=== PATIENT | female | born 1990 | race Caucasian/White ===

== ENCOUNTER 2025-05-10 22:06 | Inpatient (IN) | payer OTHER, SELFPAY ==
--- OUTSIDE RECORDS SUMMARY | 2021-04-10 02:38 | XMS_ITS | Continuity of Care Document ---
Author Organization [facility] Address [address] [place] [address] Phone Care Team Providers Care Predator Control Trapper Name Role Phone Bear ELAINE WELLINGTONReva Wong Unavailable Unavaila ble Allergies, Adverse Reactions, Alerts Substance Reaction Status Criticality Penicillins Rash Active No Information morphine Rash Active No Information CEPHALEXIN MONOHYDRATE Rash Active No In formation trimethoprim Rash Active No Information sulfamethoxazole Rash Active No Informat ion Medications Medication Instructions Dosage Effective Dates (start - stop) Status Comments 07/11 (28) 1 mg-20 mcg (21)/75 mg (7) tablet take 1 tablet by oral route every day 1.00 tablet - Active Lamictal 25 mg tablet take 1 Tablet by oral route 2 times every day 25 MG - Active Rapamune 1 mg Tab take 2 tablet (2MG) by oral route every day 4 hours after cyclosporine. - Active Adderall 30 mg Tab take 1 tablet (30MG) by oral route every day before breakfast 30 MG - Active Procedures Procedure Date PREV VISIT, EST, AGE 18-39 PREV VISIT, EST, AGE 18-39 PREV VISIT, EST, AGE 12-17 PREV VISIT, EST, AGE 18-39 OD SPECIMEN HANDLING (GC/CHLAMYDIA) Dec Thin Prep(R) Imaging System Pap W/Reflex To HR HPV DNA No Charge PREV VISIT, EST, AGE 18-39 OD SPECIMEN HANDLING (GC/CHLAMYDIA) May THIN PREP TIS LIQUID-BASED Medroxyprogesterone Acetate 104 mg injec tion OFFICE/OUTPATIENT VISIT, EST Medroxyprogesterone Acetate 104 mg injec tion URINE TEST OFFICE/OUTPATIENT VISIT, EST ROUTINE VENIPUNCTURE ODH SPECIMEN HANDLING (GC/CHLAMYDIA) Jan HIV-1 OFFICE/OUTPATIENT VISIT, EST URINE TEST SMEAR, WET MOUNT, SALINE/INK SPECIMEN HANDLING OFFICE/OUTPATIENT VISIT, EST URINE TEST Condoms REMOVE INTRAUTERINE DEVICE [facility] MEDICAID URINE TEST INSERT INTRAUTERINE DEVICE Levonorgestrel iu contracept URINE TEST OFFICE/OUTPATIENT VISIT, EST URINE TEST PREV VISIT, EST, AGE 12-17 OFFICE/OUTPATIENT VISIT, EST URINALYSIS, NONAUTO W/SCOPE URINE TEST [facility] MEDICAID SPECIMEN HANDLING URINE TEST OFFICE/OUTPATIENT VISIT, NEW HIV-1 URINALYSIS, NONAUTO W/SCOPE URINE TEST SMEAR, WET MOUNT, SALINE/INK ROUTINE VENIPUNCTURE RPR, RFX On RPR Advance Directives Directive Yes / No Effective Date File Name No Information Encounters Encounter Description Practice Location Reason(s) For Visit Diagnoses Date Provider Providers Copied on Encounter [facility], [address] [place], [place], [id number], [place] tel:[phone] [facility] No Information 0 1 Bear ELAINE Ardon. [address], [place], [id number], [place]. tel:[phone] [facility], [address], [place], [id number], [place] tel:[phone] [facility] No Information 1 Bear [facility] Reva. [address], [place], [id number], [place]. tel:[phone] PREV VISIT, EST, AGE 18-39 [facility], [address], [place], [id number], [place] tel:[phone] [facility] annual exam (chief complaint) Encounter for gynecological examination (general) (routine) without abnormal findings- STD screeningOther problems related to lifestyle 1 [facility] Reva. [address], [place], [id number], [place]. tel:[phone] PREV VISIT, EST, AGE 18-39 [facility], [address], [place], [id number], [place] tel:[phone] [facility] annual visit (chief complaint) Gynecological Examination 4 [facility] Reva. [address], [place], [id number], [place]. tel:[phone] PREV VISIT, EST, AGE 12-17 [facility], [address], [place], [id number], [place] tel:[phone] [facility] annual visit (chief complaint) Gynecological Examination 3 Guy Christianson. [address], [place], [id number], [place]. tel:[phone] [facility], [address], [place], [id number], [place] tel:[phone] [facility] No Information 2 Kayy Soto. [address], [place], [id number], [place]. tel:[phone] PREV VISIT, EST, AGE 18-39 [facility], [address], [place], [id number], [place] tel:[phone] [facility] No Information 1 Guy Christianson. [address], [place], [id number], [place]. tel:[phone] OFFICE/OUTPAT IENT VISIT, [facility], [address], [place], [address], [place] tel:[phone] [facility] No Information 1 Angel Fu. [address], [place], [id number]. tel:[phone] OFFICE/OUTPAT IENT VISIT, [facility], [address], [place], [address], [place] tel:[phone] [facility] STI female (chief complaint) Screening examination for venereal disease 1 Kayy Soto. [address], [place], [id number], [place]. tel:[phone] OFFICE/OUTPAT IENT VISIT, [facility], [address], [place], [address], [place] tel:[phone] [facility] No Information 1 Guy Christianson. [address], [place], [id number], [place]. tel:[phone] OFFICE/OUTPAT IENT VISIT, [facility], [address], [place], [id number], [place] tel:[phone] [facility] No Information 1 Lamar Lam. [address], [place], [id number], [place]. tel:[phone] [facility], [address], [place], [address], [place] tel:[phone] [facility] No Information 1 Angel Fu. [address], [place], [id number]. tel:[phone] [facility], [address], [place], [address], [place] tel:[phone] [facility] No Information 9-201 0 Lamp Meghan. [address], [place], [address], [place]. tel:[phone] [facility], [address], [place], [address], [place] tel:[phone] [facility] No Information 5-201 0 Visci DO Robin. [address], [place], [address], [place]. tel:[phone] OFFICE/OUTPAT IENT VISIT, [facility], [address], [place], [id number], [place] tel:[phone] [facility] No Information 4-201 0 Visci DO Robin. [address], [place], [address], [place]. tel:[phone] PREV VISIT, [facility], AGE 12-17 [facility], [address], [place], [id number], [place] tel:[phone] [facility] No Information 0-201 0 Stiernisreen SHIP SURVEYOR-C Solange. [address] [place], [address], [place]. tel:[phone] OFFICE/OUTPAT IENT VISIT, [facility], [address] [place], [place], [id number], [place] tel:[phone] [facility] No Information 2-201 0 Guy Christianson. [address], [place], [address], [place]. tel:[phone] [facility], [address], [place], [address], [place] tel:[phone] [facility] No Information 3-200 9 Angel Fu. [address], [place], [address]. tel:[phone] OFFICE/OUTPAT IENT VISIT, [facility], [address], [place], [id number], [place] tel:[phone] [facility] No Information Apr-0 6-200 9 Kayy Soto. [address], [place], [id number], [place]. tel:[phone] Family History Family Member Type Diagnosis Age At Onset Mother Problem (finding) Alive and well Father Problem Allergies Mother Problem Mental illness Paternal grandfather Problem (finding) heart disease Mother Problem Irritable bowel syndrome Mother Problem hypertension Mother Problem malignant neopla sm of breast in first degree relative Problem (finding) Family history of hyper tension Father Problem hypertension Father Problem (finding) Alive and well Mother Problem Allergies Mother Problem depression Problem (finding) Family history of Diabetes mellitus Payers Payer name Insurance type Covered democrat ID Authoriza tijavon(s) Medicaid [facility] [id number] Social History Type Description Quantity Date Captured Comments Sex Female Smoking Status No Information Sexual Orientation Straight or heterosexual Gender Identity Female Chief Complaint And Reason For Visit No Information Reason For Referral Reason For Referral No Information Plan Of Treatment Date Type Action Status Goal Influenza vaccine. Due on due Goal RLP. Due on due Goal Tdap. Due on due Goal PAP. Due on due Goal H&P. Due on due Goal Depression screening. Due on due Goal SALES AND MARKETING ENGINEER exam. Due on due Goal Depression screening. Due on due Goal RLP. Due on due Goal SALES AND MARKETING ENGINEER exam. Due on due Goal Tdap. Due on due Goal Influenza vaccine. Due on due Goal PAP. Due on due Goal H&P. Due on due Goal Tobacco cessation counseling completed Goal TD Vaccine. Due on 14 due Goal SALES AND MARKETING ENGINEER exam. Due on due Goal PAP. Due on due Goal H&P. Due on due Goal Tobacco cessation counseling completed History Of Present Illness Encounter Date Complaint History Of Prese nt Illness annual exam Currently pregna nt: no. The patient states she uses none for control. Last LMP was 11/14/2020. Her menses is irregular with a frequency of >28 days. The patient does use tobacco. Tobacco cessation has been discussed. She does not drink alcohol. Additional information: Patient is here for annual exam. and desires to restart OCPs. states she has been on a progesterone only pill in the past. 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 Patient is very hyper and probably has ADHD. States she feels as if she has an ovarian cyst due to discomfort in the lower left abdominal area. . Functional Status Date Functional Assessmen t No Information Instructions Date Instruction Additional Infor tony Encouraged monthly B SE. Recommend calcium 1000mg QD. Encouraged good dietary intake and exercise. Laboratory specimens sent to lab. Patient to call in 2 weeks if desires results.Discussed control options and patient desires OCPs. Patient to obtain a letter from her Liver Transplant physician giving permission to restart progesterone only BC. Encouraged to use condoms to prevent and STDs. Patient states understanding and is willing to request letter.Patient is frustrated I would not Rx OCP. Informed patient I consulted Dr. Newton and he said I could not prescribe Progesterone only pill unless we receive permission from Liver transplant provider who is managing her care. Patient states understanding. Related to Encounter for gynecological examination (general) (routine) without abnormal findings Cervical cultures se nt to lab. Patient to call in 1 week for results Related to - STD screening Avoid sexual activit y while you await your test results. Related to Screening examination for venereal disease No treatment indicat ed today. Call for test results. Related to Screening examination for venereal disease Assessments Type Assessment Date No Information Patient Care Teams Name Effective Dates (start - stop) Status Members No Information
--- OUTSIDE RECORDS SUMMARY | 2021-04-10 02:38 | XMS_ITS | Continuity of Care Document ---
Author Organization [facility] Address [address] [place] [address] Phone Care Team Providers Care Inspector Firearms Name Role Phone Bear ELAINE WELLINGTONReva Wong [...] EST URINE TEST Condoms REMOVE INTRAUTERINE DEVICE [facility] MEDICAID URINE TEST INSERT INTRAUTERINE DEVICE Levonorgestrel iu contracept URINE TEST OFFICE/OUTPATIENT VISIT, EST URINE TEST PREV VISIT, EST, AGE 12-17 OFFICE/OUTPATIENT VISIT, EST URINALYSIS, NONAUTO W/SCOPE URINE TEST [facility] MEDICAID SPECIMEN HANDLING URINE TEST OFFICE/OUTPATIENT VISIT, NEW HIV-1 URINALYSIS, NONAUTO W/SCOPE URINE TEST SMEAR, WET MOUNT, SALINE/INK ROUTINE VENIPUNCTURE RPR, RFX On RPR Advance Directives Directive Yes / No Effective Date File Name No Information Encounters Encounter Description Practice Location Reason(s) For Visit Diagnoses Date Provider Providers Copied on Encounter [facility], [address] [place], [place], [id number], [place] tel:[phone] [facility] No Information 0 1 Bear ELAINE Ardon. [address], [place], [id number], [place]. tel:[phone] [facility], [address], [place], [id number], [place] tel:[phone] [facility] No Information 1 Bear [facility] Reva. [address], [place], [id number], [place]. tel:[phone] PREV VISIT, EST, AGE 18-39 [facility], [address], [place], [address], [place] tel:[phone] [facility] annual exam (chief complaint) Encounter for gynecological examination (general) (routine) without abnormal findings- STD screeningOther problems related to lifestyle 1 [facility] Reva. [address], [place], [id number], [place]. tel:[phone] PREV VISIT, EST, AGE 18-39 [facility], [address], [place], [id number], [place] tel:[phone] [facility] annual visit (chief complaint) Gynecological Examination 4 [facility] Reva. [address], [place], [id number], [place]. tel:[phone] PREV VISIT, EST, AGE 12-17 [facility], [address], [place], [id number], [place] tel:[phone] [facility] annual visit (chief complaint) Gynecological Examination 3 Guy Christianson. [address], [place], [id number], [place]. tel:[phone] [facility], [address], [place], [address], [place] tel:[phone] [facility] No Information 2 Kayy Soto. [address], [place], [address], [place]. tel:[phone] PREV VISIT, EST, AGE 18-39 [facility], [address], [place], [id number], [place] tel:[phone] [facility] No Information 1 Guy Christianson. [address], [place], [id number], [place]. tel:[phone] OFFICE/OUTPAT IENT VISIT, [facility], [address], [place], [id number], [place] tel:[phone] [facility] No Information 1 Angel Fu. [address], [place], [id number]. tel:[phone] OFFICE/OUTPAT IENT VISIT, [facility], [address], [place], [id number], [place] tel:[phone] [facility] STI female (chief complaint) Screening examination for venereal disease 1 Kayy Soto. [address], [place], [address], [place]. tel:[phone] OFFICE/OUTPAT IENT VISIT, [facility], [address], [place], [address], [place] tel:[phone] [facility] No Information 1 Guy Christianson. [address], [place], [address], [place]. tel:[phone] OFFICE/OUTPAT IENT VISIT, [facility], [address], [place], [address], [place] tel:[phone] [facility] No Information 1 Lamar Lam. [address], [place], [id number], [place]. tel:[phone] [facility], [address], [place], [id number], [place] tel:[phone] [facility] No Information 1 Angel Fu. [address], [place], [id number]. tel:[phone] [facility], [address], [place], [id number], [place] tel:[phone] [facility] No Information 9-201 0 Lamp Meghan. [address], [place], [id number], [place]. tel:[phone] [facility], [address], [place], [address], [place] tel:[phone] [facility] No Information 5-201 0 Visci DO Robin. [address], [place], [id number], [place]. tel:[phone] OFFICE/OUTPAT IENT VISIT, [facility], [address], [place], [id number], [place] tel:[phone] [facility] No Information 4-201 0 Visci DO Robin. [address], [place], [address], [place]. tel:[phone] PREV VISIT, [facility], AGE 12-17 [facility], [address], [place], [id number], [place] tel:[phone] [facility] No Information 0-201 0 Stiernisreen POLE LIFT OPERATOR-C Solange. [address] [place], [address], [place]. tel:[phone] OFFICE/OUTPAT IENT VISIT, [facility], [address], [place], [id number], [place] tel:[phone] [facility] No Information 2-201 0 Guy Christianson. [address], [place], [id number], [place]. tel:[phone] [facility], [address], [place], [id number], [place] tel:[phone] [facility] No Information 3-200 9 Angel Fu. [address], [place], [id number]. tel:[phone] OFFICE/OUTPAT IENT VISIT, [facility], [address], [place], [id number], [place] tel:[phone] [facility] No Information Apr-0 6-200 9 Kayy Soto. [address], [place], [id number], [place]. tel:[phone] Family History Family Member Type Diagnosis Age [...] mellitus Payers Payer name Insurance type Covered constitution party ID Authoriza tijavon(s) Medicaid [facility] [id number] Social History Type Description Quantity Date Captured [...] Goal Depression screening. Due on due Goal ART FRAMING MANAGER exam. Due on due Goal Depression screening. Due on due Goal RLP. Due on due Goal ART FRAMING MANAGER exam. Due on due Goal Tdap. Due on due Goal Influenza vaccine. Due on due Goal PAP. Due on due Goal H&P. Due on due Goal Tobacco cessation counseling completed Goal TD Vaccine. Due on 14 due Goal ART FRAMING MANAGER exam. Due on due Goal PAP. Due [...]
--- OUTSIDE RECORDS SUMMARY | 2022-01-30 09:07 | XMS_ITS | Continuity of Care Document ---
Author Organization [facility] Address [address] [place] [address] Phone Care Team Providers Care Distribution Agent Name Role Phone Lopez Baptiste DDS Unavailable Unavailable Procedures Procedure Date Admits Tobacco Use TOBACCO COUNSELING BITEWIN FILMS PANORAMIC FILM INTRAORAL:PERIAPICAL 1ST FILM INTROORAL:PERIAPICAL-EA ADD FILM 2021 INTROORAL:PERIAPICAL-EA ADD FILM 2021 COMPR ORAL EVAL:NEW/EST Caries risk assessment & documentation, high risk Treatment Initiated Advance Directives Directive Yes / No Effective Date File Name No Information Encounters Encounter Description Practice Location Reason(s) For Visit Diagnoses Date Provider Providers Copied on Encounter [facility], [address] [place] [address], [id number], tel:[phone] [facility] Main No Information Oliva Marroquin. [address] [place] [address], [id number] [address], [id number], [place]. tel:[phone] [facility], [address] [place] [address], [id number], [place] tel:[phone] [facility] Main Encounter for dental exam and cleaning w/o abnormal findings Oliva Marroquin. [address] [place] [address], [id number] [address] [place] [address], [id number], [place]. tel:[phone] Family History Family Member Type Diagnosis Age At Onset No Information Payers Payer name Insurance type Covered green party ID Gloria titus(tim) Kaye Perdomo [facility] [place] [id number] [facility] [id number] Social History Type Description Quantity Date Captured Comments Sex Female Smoking Status No Information Sexual Orientation Choose not to disclose Gender Identity Female Chief Complaint And Reason For Visit No Information Reason For Referral Reason For Referral No Information Plan Of Treatment Date Type Action Status Goal Influenza vaccine. Due on due Goal Depression screening. Due on due Goal Pap/HPV testing. Due on due Goal Tdap. Due on due Goal Td vaccine. Due on due History Of Present Illness Encounter Date Complaint History Of Prese nt Illness No Information Functional Status Date Functional Assessmen t No Information Instructions Date Instruction Additional Infor mation No Information Assessments Type Assessment Date No Information Patient Care Teams Name Effective Dates (start - stop) Status Members No Information
--- OUTSIDE RECORDS SUMMARY | 2022-01-30 09:07 | XMS_ITS | Continuity of Care Document ---
Author Organization [facility] Address [address] [place] [address] Phone Care Team Providers Care Watch Assembly Instructor Name Role Phone Lopez Baptiste DDS Unavailable [...] Diagnoses Date Provider Providers Copied on Encounter [facility], [address] [place] [address], [id number], tel:[phone] [facility] S Main No Information Oliva Marroquin. [address] [place] [address], [id number], [place], [id number], [place]. tel:[phone] [facility], [address] [place] [address], [id number], [place] tel:[phone] [facility] Main Encounter for dental exam and cleaning w/o abnormal findings Oliva Marroquin. [address] [place] [address], [id number] [address] [place] [address], [id number], [place]. tel:[phone] Family History Family Member Type Diagnosis Age At Onset No Information Payers Payer name Insurance type Covered democrat ID Gloria titus(riky Perdomo [facility] [place] [id number] [facility] [id number] Social History Type Description Quantity Date Captured Comments Sex Female Smoking Status No Information Sexual Orientation Choose not to disclose Gender Identity Female Chief Complaint And Reason For Visit No Information Reason For Referral Reason For Referral No Information Plan Of Treatment Date Type Action Status Goal Td vaccine. Due on due Goal Tdap. Due on due Goal Pap/HPV testing. Due on due Goal Depression screening. Due on due Goal Influenza vaccine. Due on due History Of Present Illness Encounter Date Complaint History Of Prese nt Illness No Information Functional Status Date Functional Assessmen t No Information Instructions Date Instruction Additional Infor mation No Information Assessments Type Assessment Date No Information Patient Care Teams Name Effective Dates (start - stop) Status Members No Information
--- OUTSIDE RECORDS SUMMARY | 2024-07-25 08:50 | XMS_ITS ---
Author Organization [facility] Address [address] [place] [address] Care Team Providers Care Shell Machine Operator Name Role Phone Aneesh Sotomayor Primary Care Provider REASON FOR VISIT NEW PT Exam - Swelling gums and fever Encounters Encounter Location Date Provider Diagnosis [address] [place] [address] 07/25/2024 Aneesh Sotomayor Plan Of Treatment Next Appt Details Provider Name:Ludy Gonzalez , 07/25/2025 09:10:00 AM, [address], [place], [address], Progress Notes * BRADLEY YANIDOB: 2 (34 yo F)Acc No.[id number]:07/25/2024 Patient:?YANI HUERTA .1Provider:?ROBY FreyOB:1990???Age:33 Y ???Sex:FemaleDate:07/25/2024Phone:[phone]:[address], [id number] Subjective: * Chief Complaints: * N EW PT Exam - Swelling gums and fever * Electronic signature of Aneesh Sotomayor DDS on 05/11/2025 at 12:42 AM ESTSign off status: Pending * Provider: Jose Sotomayor DDS Date: 0 07/25/2024 Generated for Printing/Faxing/eTransmitting on:?05/11/2025 12:42 AM EST
--- OUTSIDE RECORDS SUMMARY | 2024-12-12 08:00 | XMS_ITS ---
Author Organization [facility] Address [address] [place] [address] Care Team Providers Care Finisher Wallboard And Plasterboard Name Role Phone Aneesh Sotomayor Primary Care Provider Dian Nelson Unavailable [phone] REASON FOR VISIT FILLING Encounters Encounter Location Date Provider Diagnosis [facility] [address] [place] [address] 12/12/2024 Dian Degroot Plan Of Treatment Next Appt Details Provider Name:Ludy Gonzalez , 07/25/2025 09:10:00 AM, [address], [place], [address], Progress Notes * YANI HUERTADOB: 2 (34 yo F)Acc No.[id number]:12/12/2024 Patient:?YANI HUERTA .1Provider:?DIAN DEGROOT DDSDOB:1990???Age: 34 Y???Sex:FemaleDate:12/12/2024Phone:[phone]:[address] [place], [id number]:Aneesh Sotomayor Subjective: * Chief Complaints: * F ILLING * Electronic signature of Dian Degroot DDS on 05/11/2025 at 12:42 AM ESTSign off status: Pending * Provider: Lavell DEGROOT DDS Date: 0 12/12/2024 Generated for Printing/Faxing/eTransmitting on:?05/11/2025 12:42 AM EST
--- OUTSIDE RECORDS SUMMARY | 2025-02-09 09:15 | XMS_ITS ---
Author Organization [facility] Servic es Address [address] [place] [address] Care Team Providers Care Vegetable I Farmworker Name Role Phone Aneesh Sotomayor Primary Care Provider Holli Ramirez Unavailable [phone] REASON FOR VISIT PROPHY Encounters Encounter Location Date Provider Diagnosis [place] [address] [place] [address] 02/09/2025 Holli Ramirez Plan Of Treatment Next Appt Details Provider Name:Ludy Gonzalez , 07/25/2025 09:10:00 AM, [address], [place], [address], Progress Notes * BRADLEYGUANACOSERGEYDOB: 2 (34 yo F)Acc No.[id number]:02/09/2025 Patient:?BRADLEYGUANACONA .1Provider:?Holli RamírezDOB:1990???Age:34 Y???Sex: FemaleDate:02/09/2025Phone:[phone]:[address], [place]Vrs:Aneesh Sotomayor Subjective: * Chief Complaints: * P ROPHY * Electronic signature of Holli Ramirez on 05/11/2025 at 12:41 AM ESTSign off status: Pending * Provider: Pelon Ramírez Date: 0 02/09/2025 Generated for Printing/Faxing/eTransmitting on:?05/11/2025 12:41 AM EST
--- OUTSIDE RECORDS SUMMARY | 2025-03-20 05:15 | XMS_ITS ---
Author Organization [facility] Serv[facility] es Address [address] [place] [address] Care Team Providers Care Hot Patcher Name Role Phone Aneesh Sotomayor Primary Care Provider [phone] Mandy Bedolla Unavailable [phone] REASON FOR VISIT FILLING Encounters Encounter Location Date Provider Diagnosis [facility] [address] [place] [address] 03/20/2025 Mandy Bedolla Plan Of Treatment Next Appt Details Provider Name:Ludy Gonzalez , 07/25/2025 09:10:00 AM, [address], [place], [address], Progress Notes * BRADLEY YANIDOB: 2 (34 yo F)Acc No.[id number]:03/20/2025 Patient:?BRADLEYGUANACONA .1Provider:?Mandy BedollaDOB:1990???Age:34 Y???Sex: FemaleDate:03/20/2025Phone:[phone]:[address] [place], [place]Poz:Aneesh Sotomayor Subjective: * Chief Complaints: * F ILLING Billing Information: * Procedure Codes: * Electronic signature of Mandy Bedolla DMD on 05/11/2025 at 12:42 AM ESTSign off status: Pending * Provider: Sirena Bedolla Date: 0 03/20/2025 Generated for Printing/Faxing/eTransmitting on:?05/11/2025 12:42 AM EST
--- OUTSIDE RECORDS SUMMARY | 2025-04-10 11:15 | XMS_ITS ---
Author Organization [facility] Servic es Address [address] [place] [address] Care Team Providers Care Vice President Pharmacy Name Role Phone Aneesh Sotomayor Primary Care Provider Mandy Bedolla Unavailable [phone] REASON FOR VISIT FILLING Encounters Encounter Location Date Provider Diagnosis [facility] Services [address] [place] [address] 04/10/2025 Mandy Bedolla Plan Of Treatment Next Appt Details Provider Name:Ludy Gonzalez , 07/25/2025 09:10:00 AM, [address], [place], [address], Progress Notes * BRADLEYGUANACOSERGEYDOB: 2 (34 yo F)Acc No.[id number]:04/10/2025 Patient:?BRADLEYYANI RODRIGUEZ .1Provider:?Mandy BedollaDOB:1990???Age:34 Y???Sex: FemaleDate:04/10/2025Phone:[phone]:[address] [place], [place]Hkj:Aneesh Sotomayor Subjective: * Chief Complaints: * F ILLING * Electronic signature of Mandy Bedolla DMD on 05/11/2025 at 12:43 AM ESTSign off status: Pending * Provider: Sirena Bedolla Date: 1 Generated for Printing/Faxing/eTransmitting on:?05/11/2025 12:43 AM EST
[2025-05-10 23:17] VITALS: BP 110/90; PULSE 102; TEMP 37.3; O2SAT 99; BMI 26.5
--- NOTE | 2025-05-11 00:06 | XR_ITS ---
The [address] [address] Patient Name: YANI HUERTA MRN: [id number] date: 1990 Sex: F Assigned Patient Location: ER Current Patient Location: [place] Accession/Order Number: [id number] Exam Date: 05/11/2025 00:20 Report Date: 05/11/2025 09:29 At the request of: BLAYNE FUENTES MD Procedure: XR hand RT min 3V RIGHT HAND - 3 views CLINICAL DATA: Pain and swelling at the right hand and index finger following injury COMPARISON: None AP, lateral and oblique views were obtained. There is no evidence of fracture or dislocation. No bony destruction is noted. There is dorsal soft tissue swelling at the hands and also swelling at the proximal index finger. No subcutaneous air or radiopaque foreign bodies are noted. XR/XR hand RT min 3V IMPRESSION: NO ACUTE BONY INJURY. SOFT TISSUE SWELLING. Impression dictated by: Naima Katz M.D. 05/11/2025 9:29 AM Dictation Location: [place] [address] Electronically authenticated by: [id number] Y Date: 05/11/2025 09:29
[2025-05-11 00:38] LABS: Hematocrit 32.4 % (36.0-48.0); Hemoglobin 10.8 g/dL (12.0-16.0); Immature Granulocytes Abs Auto 0.12 10^3/uL (0.00-0.03); Immature Granulocytes Pct Auto 1.1 % (0.0-0.5); Lymphocytes Absolute Auto 0.6 10^3/uL (1.2-3.8); Mean Corpuscular HGB Conc 33.3 g/dL (29.9-35.2); Mean Corpuscular Hemoglobin 30.5 pg (26.7-34.0); Mean Corpuscular Volume 91.5 fL (81.0-99.0); Platelet Count 48 10^3/uL (150-450); Red Blood Count 3.54 10^6/uL (4.20-5.40); White Blood Count 11.2 10^3/uL (4.0-11.0)
--- OUTSIDE RECORDS SUMMARY | 2025-05-11 00:42 | XMS_ITS | Clinical Summary ---
Author Organization [facility] Address [address] [facility], [address] [place] [address] Care Team Providers Care Online Advertising Manager Name Role Phone Unavailable Primary Care Provider Unavailabl e Allergies Active AllergyReactionsCriticalityNoted DateComments Sulfamethoxazole-KnehzccqsqatFtaeisxleaoKorx17/14/2022ephalexinAnaphylaxisHigh 2Clindamycin/XosrzxlvolEefffbyjoepZqff71/14/2022MorphineAnaphylaxis, WjqxeuxrqhplcfBuom94/14/6722IvnngbyzwerBxbjtgwxjzqFssk55/14/2022ulfa BsggpalbtfkLbesddcxircPtwv51/14/2022 Medications MedicationSigDispense QuantityRefillsLast FilledStart DateEnd DateStatus sirolimus (RAPAMUNE) 1 MG tablet Take 2 mg by mouth dailyActive ursodiol (ACTIGALL) 300 MG capsule Take 300 mg by mouth 2 times daily (before meals)Active furosemide (LASIX) 20 MG tablet Take 20 mg by mouth dailyActive methylPREDNISolone (MEDROL, EUSEBIA,) 4 MG tablet Take by mouth. 1 kit 01/02/2022ctive Social History Tobacco UseTypesPacks/DayYears UsedDateSmoking Tobacco: Every DayCigarettes Smokeless Tobacco: NeverAlcohol UseStandard Drinks/WeekCommentsNever0 (1 standard drink = 0.6 oz pure alcohol)CommentsNoSex and Gender InformationValueDate RecordedSex Assigned at BirthNot on fileLegal SexFemale 01/02/2022 10:04 AM EDTGender IdentityNot on fileSexual OrientationNot on file Last Filed Vital Signs Vital SignReadingTime TakenCommentsBlood Ydidrdtf751/8901/02/2022 10:08 AM EDT Aoytp388201/02/2022 10:08 AM XGXXenskctwakg69.6 ??C (97.9 ??F)01/02/2022 10:08 AM EDTRespiratory Rbpo092901/02/2022 10:08 AM EDTOxygen Xmwqiyjglk95%01/02/2022 10:08 AM EDTInhaled Oxygen Concentration--Wgkwtp97.2 kg (135 lb)01/02/2022 10:08 AM LOAHlmdkd810 cm (5' 3 )01/02/2022 10:08 AM EDTBody Mass Index23.9101/02/2022 10:08 AM EDT Plan of Treatment Not on file Insurance * Guarantor: Kacie JaimesAccount TypeRelation to PatientDate of BirthPhone Billing AddressPersonal/TkovauCiqd33/27/[address] [address]
--- OUTSIDE RECORDS SUMMARY | 2025-05-11 00:42 | XMS_ITS | Patient Health Record ---
Author Organization [facility] es Address [address] [place] [address] Care Team Providers Care Nursery Supervisor Name Role Phone Aneesh Sotomayor Primary Care Provider Shaneka Nelson Unavailable [phone] Holli Ramirez Unavailable [phone] Mandy Bedolla Unavailable [phone] Reason For Referral No Information Encounters Encounter Location Date Provider Diagnosis [facility] [address] [place] [address] 08/02/2024 Shaneka Ballard Other dental procedure status Z98.818 ; Encounter for dental examination and cleaning with abnormal findings Z01.21 ; Cracked tooth K03.81 ; Retained dental root K08.3 and Dental caries on pit and fissure surface penetrating into dentin K02.52 [facility] [address] [place] [address] 11/23/2024 Shaneka Ballard Retained dental root K08.3 Assessments Encounter Date Diagnosis (ICD Code) Assessment Notes Treatment Notes Treatment Clinical Notes Section Notes 08/02/2024 Other dental procedure status (I CD-10 - Z98.818) 11/23/2024Retained dental root (ICD-10 - K08.3)08/02/2024Encounter for dental examination and cleaning with abnormal findings (ICD-10 - Z01.21)08/02/2024 Cracked tooth (ICD-10 - K03.81)08/02/2024Retained dental root (ICD-10 - K08.3) 08/02/2024Dental caries on pit and fissure surface penetrating into dentin (ICD- 10 - K02.52) Plan Of Treatment Next Appt Details Provider Name:Ludy Gonzalez , 07/25/2025 09:10:00 AM, [address], [place], [address], Insurance Providers Payer Name Payer Address Payer Phone Subscriber Number Group Number Insured Name Patient Relationship to Insured Coverage Start Date Coverage End Date Dental CareSonhung CARRASCO RI [address] [place] [phone] [id number] Tarah Huerta Child - Insured has Financial Responsibility 5 Dental Wrap [facility] [address] [place] [phone] [id number], AndraNatural Child - Insured has Financial Kniytrmobjgdvj95/09/2022
--- NOTE | 2025-05-11 00:43 | ED.UPPEXIN1 ---
HPI HPI - Extremity Injury (Upper) General Chief Complaint: Extremity Injury, Upper Stated Complaint: Abscess on right index finger Time Seen by Provider: 05/10/25 23:51 Source: patient Mode of arrival: walk-in Limitations: no limitations History of Present Illness HPI narrative: This 34-year-old female who is right-hand dominant presents for evaluation of redness, pain and swelling of her right index finger, long finger and ring finger as well as erythema and tenderness of the thenar eminence with lymphangitic streaking up the medial aspect of her right arm abutting her axilla. She states that she was putting a bed frame together yesterday and sustained a injury to the lateral aspect of the right index finger the PIP joint. She put a Band-Aid on it and went to work today. 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 After getting home she noticed that she had some redness and swelling of the hand which became increasingly more tender as the night went on and she developed fevers, chills and lymphangitic streaking up the medial aspect of her right arm. She does not know if she is ever had a tetanus vaccine and refuses one today. He also has a ring on her middle finger that she is unable to get off due to mild swelling. 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 She is on rejection medications. Related Data Home Medications ?Medication ?Instructions ?Recorded ?Confirmed dextroamphetamine-amphetamine 15 15 mg PO DAILY 05/11/25 05/11/25 mg tablet lamotrigine 100 mg tablet 100 mg PO DAILY 05/11/25 05/11/25 propranolol 60 mg capsule,24 60 mg PO Q24H 05/11/25 05/11/25 hr,extended release sirolimus 1 mg tablet 1 mg PO Q12H 05/11/25 05/11/25 sumatriptan succinate 100 mg tablet 100 mg PO Q2H 05/11/25 05/11/25 topiramate 200 mg tablet 200 mg PO DAILY 05/11/25 05/11/25 ursodiol 300 mg capsule 300 mg PO DAILY 05/11/25 05/11/25 Allergies Allergy/AdvReac Type Severity Reaction Status Date / Time cephalexin (From Keflex) Allergy Mild Swelling Verified 05/10/25 23:17 of Lip/Tongue/Throat clindamycin Allergy Mild Swelling Verified 05/10/25 23:17 of Lip/Tongue/Throat morphine Allergy Mild Hallucinati Verified 05/10/25 23:17 ng Penicillins Allergy Mild Swelling Verified 05/10/25 23:17 of Lip/Tongue/Throat Sulfa (Sulfonamide Allergy Mild Swelling Verified 05/10/25 23:17 Antibiotics) of Lip/Tongue/Throat sulfamethoxazole (From Allergy Mild Swelling Verified 05/10/25 23:17 Bactrim) of Lip/Tongue/Throat trimethoprim (From Bactrim) Allergy Mild Swelling Verified 05/10/25 23:17 of Lip/Tongue/Throat Opioid HPI Opioid Management Most Recent Pain and Opioid Data: Last Pain Scale 9 Today, 00:54 Review of Systems ROS Status of ROS 10 or more systems reviewed and unremarkable except as noted in history and below PFSH PFSH Social History Little interest or pleasure in doing things: not at all Feeling down, depressed, or hopeless: not at all Exam Narrative Exam Narrative: Vital signs and Nursing Notes reviewed: Patient is febrile, tachycardic, she has a normal blood pressure, she is not hypoxic with pulse ox of 99% on room air General: Awake, alert, oriented, nontoxic but uncomfortable appearing female, no acute distress, lying comfortably on the stretcher HEENT: Normocephalic atraumatic, mucous membranes are moist and pink, eyes are clear, normal conjunctiva, vision is grossly intact Chest: Lungs are clear to auscultation with good air entry, there is no wheezing rhonchi or rales appreciated no accessory muscle use, patient is speaking in complete sentences-no chest wall tenderness to palpation CVS: Regular rate and rhythm S1-S2, no murmurs rubs or gallops, pulses are brisk and equal bilaterally ABD: Soft, nondistended, nontender, no rebound guarding or rigidity, bowel sounds are normal, no pulsatile masses appreciated Extremities: There is an approximately 1 cm open wound to the lateral aspect of the right finger at the PIP joint and another superficial laceration between the MCP and PIP joint, the wound is draining purulent drainage. There is decreased range of motion and pain with passive and active flexion. Redness and tenderness extends outward from the index finger encompassing the medial aspect of the thumb and thenar eminence, the MCPs of the long finger and ring finger. There is a ring on the long finger that was removed with a ring cutter. There is lymphangitic streaking emanating from the right hand of the medial aspect of the wrist and forearm abutting the axilla. Skin: Normal in appearance with the exception of redness swelling, cellulitis of the right hand and lymphangitic streaking of the right upper extremity Neuro: No focal deficits Constitutional Vital Signs, click to edit/add: Last Vital Signs Temp 99.2 F 05/10/25 23:17 Pulse 102 H 05/10/25 23:17 Resp 18 05/10/25 23:17 BP 110/90 05/10/25 23:17 Pulse Ox 99 05/10/25 23:17 O2 Del Method Room Air 05/10/25 23:17 Course Vital Signs Vital signs: Vital Signs Temperature 99.2 F 05/10/25 23:17 Pulse Rate 102 H 05/10/25 23:17 Respiratory Rate 18 05/10/25 23:17 Blood Pressure 110/90 05/10/25 23:17 Pulse Oximetry 99 05/10/25 23:17 Oxygen Delivery Method Room Air 05/10/25 23:17 Temperature 99.2 F 05/10/25 23:17 Pulse Rate 102 H 05/10/25 23:17 Respiratory Rate 18 05/10/25 23:17 Blood Pressure 110/90 05/10/25 23:17 Pulse Oximetry 99 05/10/25 23:17 Oxygen Delivery Method Room Air 05/10/25 23:17 MDM - Extremity Injury (Upper) MDM Narrative Medical decision making narrative: This 34-year-old female who has had 2 liver transplants after being born with biliary atresia presents for evaluation of an infection in her right index finger. The patient states she was putting together a bed frame yesterday and cut the lateral aspect of her right finger. She did not think much of the injury and went to work yesterday after placing a Band-Aid over the site. After getting home from work she noticed redness and swelling to the extremity which extends to the right 3rd and 4th metacarpals. She did have a ring on her long finger that I removed. Has lymphangitic streaking up the medial aspect of her right arm almost to her axilla. She was noted to be febrile and mildly tachycardic upon arrival. An IV was placed and a septic workup was ordered. She is allergic to multiple antibiotics but not doxycycline. Medicated with IV fluids, Tylenol for her fever I have Percocet for her pain and IV doxycycline. Routine labs are reviewed. Her white count is mildly elevated 11.2 with a hemoglobin of 10.8. CRP is elevated. Lactic acid is elevated. Electrolytes are normal with an elevated creatinine at 2.13. Xray of the right hand does not show any bony erosion concerning for osteomyelitis, foreign body or gas in the tissues. There was purulent drainage from the right finger that was cultured. Blood cultures are pending at this time. On re-evaluation she has mild increase in flexion of the right index finger and marked improvement in flexion of the long finger and ring finger. The redness in her hand appears to be improving and the lymphangitic streaking is becoming less apparent. Case was discussed with the hospitalist and she is accepted for admission to [facility]. A bed is not available on the [facility] floor at this time and she will be given a bed 1 1 becomes available in the morning. Lab Data Labs: Lab Results 05/11/25 Range/Units 00:10 WBC 11.2 H (4.0-11.0) 10^3/uL RBC 3.54 L (4.20-5.40) 10^6/uL Hgb 10.8 L (12.0-16.0) g/dL Hct 32.4 L (36.0-48.0) % MCV 91.5 (81.0-99.0) fL MCH 30.5 (26.7-34.0) pg MCHC 33.3 (29.9-35.2) g/dL RDW 13.1 (11.0-15.0) % Plt Count 48 L (150-450) 10^3/uL MPV 12.5 (9.5-13.5) fL Neut % (Auto) 89.6 H (43.0-75.0) % Lymph % (Auto) 5.3 L (20.5-60.0) % [place] % (Auto) 3.9 (1.7-12.0) % Eos % (Auto) 0.0 L (0.9-7.0) % Baso % (Auto) 0.1 L (0.2-2.0) % Neut # (Auto) 10.0 H (1.4-6.5) 10^3/uL Lymph # (Auto) 0.6 L (1.2-3.8) 10^3/uL [place] # (Auto) 0.4 (0.3-0.8) 10^3/uL Eos # (Auto) 0.0 (0.0-0.7) 10^3/uL Baso # (Auto) 0.0 (0.0-0.1) 10^3/uL Abs Immat Gran (auto) 0.12 H (0.00-0.03) 10^3/uL Imm/Tot Granulo (auto) 1.1 H (0.0-0.5) % Sodium 142 (136-145) mmol/L Potassium 3.7 (3.5-5.1) mmol/L Chloride 112 H (98-107) mmol/L Carbon Dioxide 19.4 L (21.0-32.0) mmol/L Anion Gap 14.3 BUN 31.0 H (7.0-18.0) mg/dL Creatinine 2.13 H (0.55-1.02) mg/dL Est GFR ( Amer) 32 L (>=60 mL/min/1.73m^2) Est GFR (Non-Af Amer) 27 L (>=60 mL/min/1.73m^2) BUN/Creatinine Ratio 14.6 Glucose 208 H (74-106) mg/dL Lactate 2.3 H* (0.4-2.0) mmol/L Calcium 8.9 (8.5-10.1) mg/dL Total Bilirubin 0.6 (0.2-1.0) mg/dL AST 23 (15-37) U/L ALT 29 (14-59) U/L Alkaline Phosphatase 93 (46-116) U/L C-Reactive Protein 2.82 H (<=0.50) mg/dL Total Protein 7.0 (6.4-8.2) g/dL Albumin 3.5 (3.4-5.0) g/dL Globulin 3.5 g/dL Albumin/Globulin Ratio 1.0 Discharge Plan Discharge Chief Complaint: Extremity Injury, Upper Clinical Impression: Infection of finger, Lymphangitis Patient Disposition: Admitted As Inpatient Time of Disposition Decision: 02:24 Condition: Good
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
--- OUTSIDE RECORDS SUMMARY | 2025-05-11 00:43 | XMS_ITS | Clinical Summary ---
Author Organization [facility] Address [address] [place] [address] Care Team Providers Care Associate Professor Name Role Phone Huong Tejada MD Primary Care Provider [phone] Allergies Active AllergyReactionsCriticalityNoted DateComments Sulfamethoxazole-Vuubzlfabqzr29/05/8121Skfpgtfeyvj91/05/1478Mvvqtabcaw45/05/2025 Yahdjiiu31/05/4201Vpigzahbeyn37/05/7745Gaoysemudwgku30/05/2025 Medications MedicationSigDispense QuantityRefillsLast FilledStart DateEnd DateStatus lamoTRIgine (LaMICtal) 100 MG tablet Take 100 mg by mouth in the morning and 100 mg before bedtime.Active traZODone (Desyrel) 100 MG tablet Take 100 mg by mouth at bedtimeActive rOPINIRole (Requip) 0.5 MG tablet Take 0.5 mg by mouth in the morning and 0.5 mg in the evening and 0.5 mg before bedtime.Active busPIRone (Buspar) 10 MG tablet Take 10 mg by mouth in the morning and 10 mg before bedtime.Active topiramate (Topamax) 200 MG tablet Take 200 mg by mouth DailyActive baclofen (Lioresal) 10 MG tablet Take 10 mg by mouth in the morning and 10 mg before bedtime.Active SUMAtriptan (Imitrex) 100 MG tablet Take 100 mg by mouth 1 (one) time if needed for migraineActive amphetamine-dextroamphetamine XR (Adderall XR) 15 MG 24 hr capsule Take 15 mg by mouth in the morning. Do not crush or chew.Active sirolimus (Rapamune) 1 MG tablet Take 2 mg by mouth DailyActive ursodiol (Actigall) 300 MG capsule Take 300 mg by mouth in the morning and 300 mg in the evening.5Active norethindrone-ethinyl estradiol (Rohan Fe 07/11) 1-20 MG-MCG tablet Take 1 tablet by mouth DailyActive amitriptyline (Elavil) 25 MG tablet Indications:Chronic migraine with aura without status migrainosus, not intractableTake 1 tablet (25 mg) by mouth Daily 30 tablet 6Active Social History Tobacco UseTypesPacks/DayYears UsedDateSmoking Tobacco: Never Assessed CommentsUnknownSex and Gender InformationValueDate RecordedSex Assigned at Not on fileLegal NsxKwemmz46/15/2023 6:58 PM EDTGender IdentityNot on fileSexual OrientationNot on file Last Filed Vital Signs Vital SignReadingTime TakenCommentsBlood Ungherrb308/8610/24/2024 2:50 PM EDT Wkfhi775910/24/2024 2:50 PM EDTTemperature--Respiratory Sevn316310/24/2024 2:50 PM EDTOxygen Fexnoozvnp40%10/24/2024 2:50 PM EDTInhaled Oxygen Concentration-- Hzqwyh72.9 kg (163 lb)10/24/2024 2:50 PM WZFWzbuap267.5 cm (5' 2 )10/24/2024 2:50 PM EDTBody Mass Index29.8110/24/2024 2:50 PM EDT Plan of Treatment Health MaintenanceDue DateLast DoneCommentsHPV/Xhzaau2709/15/2021ervical Cancer Vdmeszmhs71/02/2022ap Smear, 05/23/2019, 03/13/2010COVID-19 Vaccine ( season)/Influenza Vaccine (#1)2025 Pneumococcal Vaccine: Pediatrics (0 to 5 Years) and At-Risk Patients (6 to 64 Years)Aged OutNo longer eligible based on patient's age to complete this topic Insurance Care Teams Team MemberRelationshipSpecialtyStart DateEnd Huong Tejada MD [address] [place] [address] PCP - GeneralFamily Medicine08/05/24
[2025-05-11 00:52] LABS: Alanine Aminotransferase 29 U/L (14-59); Albumin Globulin Ratio 1.0; Albumin Level 3.5 g/dL (3.4-5.0); Alkaline Phosphatase 93 U/L (46-116); Anion Gap 14.3; Aspartate Amino Transferase 23 U/L (15-37); Blood Urea Nitrogen 31.0 mg/dL (7.0-18.0); Calcium 8.9 mg/dL (8.5-10.1); Carbon Dioxide 19.4 mmol/L (21.0-32.0); Chloride 112 mmol/L (98-107); Estimated GFR (African America 32 (>=60 mL/min/1.73m^2); Estimated GFR (Non-African Ame 27 (>=60 mL/min/1.73m^2); Globulin 3.5 g/dL; Glucose 208 mg/dL (74-106); Potassium 3.7 mmol/L (3.5-5.1); Sodium 142 mmol/L (136-145); Total Protein 7.0 g/dL (6.4-8.2)
[2025-05-11 00:57] LABS: Lactate/Lactic Acid 2.3 mmol/L (0.4-2.0)
[2025-05-11] MEDS: DOXYCYCLINE HYCLATE 100 MG in 0.9 % SODIUM CHLORIDE 100 ML IV (01:03)
[2025-05-11] MEDS: 0.9 % SODIUM CHLORIDE 1,503 ML 501 ML IV (01:03)
[2025-05-11] MEDS: OXYCODONE HCL/ACETAMINOPHEN 5MG/325MG 1 TAB PO (01:04)
[2025-05-11] MEDS: KETOROLAC TROMETHAMINE 30 MG/ML VIAL IVP (01:04)
[2025-05-11 04:12] VITALS: BP 104/65; PULSE 91; TEMP 36.8; O2SAT 99
[2025-05-11 05:43] LABS: Lactate/Lactic Acid 1.0 mmol/L (0.4-2.0)
[2025-05-11 05:57] LABS: Hematocrit 28.9 % (36.0-48.0); Hemoglobin 9.5 g/dL (12.0-16.0); Mean Corpuscular HGB Conc 32.9 g/dL (29.9-35.2); Mean Corpuscular Hemoglobin 30.4 pg (26.7-34.0); Mean Corpuscular Volume 92.3 fL (81.0-99.0); Platelet Count 33 10^3/uL (150-450); Red Blood Count 3.13 10^6/uL (4.20-5.40); White Blood Count 7.2 10^3/uL (4.0-11.0)
[2025-05-11 06:16] LABS: Alanine Aminotransferase 24 U/L (14-59); Albumin Globulin Ratio 0.9; Albumin Level 2.7 g/dL (3.4-5.0); Alkaline Phosphatase 76 U/L (46-116); Anion Gap 12.7; Aspartate Amino Transferase 18 U/L (15-37); Blood Urea Nitrogen 28.0 mg/dL (7.0-18.0); Calcium 7.9 mg/dL (8.5-10.1); Carbon Dioxide 18.0 mmol/L (21.0-32.0); Chloride 114 mmol/L (98-107); Estimated GFR (African America 37 (>=60 mL/min/1.73m^2); Estimated GFR (Non-African Ame 31 (>=60 mL/min/1.73m^2); Globulin 3.0 g/dL; Glucose 157 mg/dL (74-106); Potassium 3.7 mmol/L (3.5-5.1); Sodium 141 mmol/L (136-145); Total Protein 5.7 g/dL (6.4-8.2)
[2025-05-11] MEDS: VANCOMYCIN HCL 1,250 MG in 0.9 % SODIUM CHLORIDE 250 ML 166.667 MG IV (08:33)
[2025-05-11] MEDS: 0.9 % SODIUM CHLORIDE 1,000 ML 250 ML IV (08:47)
[2025-05-11 09:16] VITALS: BP 110/77; PULSE 85; TEMP 36.6; O2SAT 98; BMI 28.0
[2025-05-11] MEDS: LAMOTRIGINE 100 MG TABLET PO (09:37)
[2025-05-11] MEDS: ACETAMINOPHEN 325 MG TABLET 650 MG PO (09:37)
[2025-05-11] MEDS: TOPIRAMATE 100 MG TABLET 200 MG PO (11:32)
--- NOTE | 2025-05-11 13:23 | PM.HP ---
HPI H&P: HPI History of Present Illness Chief complaint: Abscess on right index finger R INDEX FINGER CELLU Narrative: Mrs Hadley is a 34-year-old female who came to the emergency room with pain, swelling and redness involving the right hand expanding all the way to the forearm and proximal arm. This started 3 days ago according to the patient when she was putting together a bed frame. Small metal edge lacerated her right index finger. 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 She started to develop pain, swelling and redness in the right hand which later went up to the forearm and into the proximal arm. She came to the emergency room. Opioid HPI Opioid Management Most Recent Pain and Opioid Data: Last Pain Scale 10 Today, 11:26 Last Pain Assessment Today, 12:00 Last MAR Pain Assessment Today, 10:44 Last ORT Total Score 7 Today, 09:16 Last ORT Risk Category Moderate Risk Today, 09:16 Review of Systems ROS Status of ROS 10 or more systems reviewed and unremarkable except as noted in history and below PFSH PFS Medical History (Updated 05/11/25 @ 13:27 by Curt Lambert MD) Methamphetamine abuse ?F15.10 - Other stimulant abuse, uncomplicated (ICD-10) Migraines ?G43.909 - Migraine, unspecified, not intractable, without status migrainosus (ICD-10) Liver transplant planned ?Z76.82 - Awaiting organ transplant status (ICD-10) Surgical History (Updated 05/11/25 @ 09:33 by Codie Reyes) Liver transplanted ?Z94.4 - Liver transplant status (ICD-10) Family History (Updated 05/11/25 @ 09:34 by Codie Reyes) Mother Family history of cancer Grandmother Family history of cancer Family history of diabetes mellitus Social History (Updated 05/11/25 @ 09:36 by Codie Reyes) Within the past year, how often did you have a drink containing alcohol: monthly or less Within the past year, how many standard drinks containing alcohol did you have on a typical day: 1 or 2 Within the past year, how often did you have six or more drinks on one occasion: never Total score: 0 Score interpretation: A score less than 3 is consistent with normal alcohol consumption. 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 Highest level of school completed/degree received: high school graduate Do you want help with school or training: No Are you now , , , , never or living with a partner: never In a typical week, how many times do you talk on the telephone with family, friends, or neighbors: 3 or more times per week How often do you get together with friends or relatives: 3 or more times per week How often do you attend anabaptist or samaritan services: never Do you belong to any clubs or organizations such as anabaptist groups unions, [employer] or athletic groups, or school groups: no Total score: 1 Score interpretation: A score of less than or equal to 1 indicates the most socially isolated. Little interest or pleasure in doing things: not at all Feeling down, depressed, or hopeless: not at all Feel stressed/tense/nervous/anxious/difficulty sleeping: not at all Due to disability, difficulty making decisions: No Do you think of yourself as: straight/heterosexual Gender Identity: female Meds Home Medications and Allergies Home Medications ?Medication ?Instructions ?Recorded ?Confirmed ?Type dextroamphetamine-amphetamine 15 15 mg PO DAILY 05/11/25 05/11/25 History mg tablet lamotrigine 100 mg tablet 100 mg PO DAILY 05/11/25 05/11/25 History propranolol 60 mg capsule,24 60 mg PO Q24H PRN migraines 05/11/25 05/11/25 History hr,extended release sirolimus 1 mg tablet 1 mg PO Q12H 05/11/25 05/11/25 History sumatriptan succinate 100 mg tablet 100 mg PO Q2H PRN migraine headache 05/11/25 05/11/25 History topiramate 200 mg tablet 200 mg PO DAILY 05/11/25 05/11/25 History ursodiol 300 mg capsule 300 mg PO DAILY 05/11/25 05/11/25 History Allergies Allergy/AdvReac Type Severity Reaction Status Date / Time cephalexin (From Keflex) Allergy Mild Swelling Verified 05/10/25 23:17 of Lip/Tongue/Throat clindamycin Allergy Mild Swelling Verified 05/10/25 23:17 of Lip/Tongue/Throat morphine Allergy Mild Hallucinati Verified 05/10/25 23:17 ng Penicillins Allergy Mild Swelling Verified 05/10/25 23:17 of Lip/Tongue/Throat Sulfa (Sulfonamide Allergy Mild Swelling Verified 05/10/25 23:17 Antibiotics) of Lip/Tongue/Throat sulfamethoxazole (From Allergy Mild Swelling Verified 05/10/25 23:17 Bactrim) of Lip/Tongue/Throat trimethoprim (From Bactrim) Allergy Mild Swelling Verified 05/10/25 23:17 of Lip/Tongue/Throat Exam Narrative Exam Narrative: [pt is awake and alert. oriented to place, time and person. Moderate to severe distress secondary to pain. She would not allow me to touch her hand. Patient has erythema, tenderness, induration involving the dorsal aspect of her hand. Erythema without induration extending all the way to the medial anterior forearm and medial proximal arm. Small area on the right index finger near the first phalanx draining pus. I could not feel any large pocket of pus or abscess formation. Patient is able partially to flex her fingers No induration on the palmar aspect of the hand Palpable radial pulse. HEENT: [place] conjunctiva and NL buccal mucosa Neck: Supple, no tenderness Endocrine: No Thyromegaly. Vascular: No JVD or carotid bruit. Lymphatic: No cervical lymphadenopathy. Chest: CTA no DTP. Heart RRR, no extra sound or murmur. Abd: Soft, no tenderness, no rebound and no rigidity. Increase abd girth therefore clinically I could not exclude the possibility of intra abd mass or organomegaly. LE: No cyanosis or clubbing, no varices or edema. Neuro: A A O. Nl speech, comprehension and attention. Nl and symetrical motor and tone examination through out. []] Constitutional Vital Signs, click to edit/add: Last Vital Signs Temp 97.8 F 05/11/25 09:16 Pulse 85 05/11/25 09:16 Resp 16 05/11/25 09:16 BP 110/77 05/11/25 09:16 Pulse Ox 98 05/11/25 09:16 O2 Del Method Room Air 05/11/25 09:16 Results Labs Labs: Short CBC 05/11/25 05/11/25 Range/Units 00:10 05:53 WBC 11.2 H 7.2 (4.0-11.0) 10^3/uL Hgb 10.8 L 9.5 L (12.0-16.0) g/dL Hct 32.4 L 28.9 L (36.0-48.0) % Plt Count 48 L 33 L (150-450) 10^3/uL BMP 05/11/25 05/11/25 00:10 05:53 Sodium 142 141 Potassium 3.7 3.7 Chloride 112 H 114 H Carbon Dioxide 19.4 L 18.0 L BUN 31.0 H 28.0 H Creatinine 2.13 H 1.89 H Glucose 208 H 157 H Calcium 8.9 7.9 L Liver Function 05/11/25 05/11/25 Range/Units 00:10 05:53 Total Bilirubin 0.6 0.5 (0.2-1.0) mg/dL AST 23 18 (15-37) U/L ALT 29 24 (14-59) U/L Alkaline Phosphatase 93 76 (46-116) U/L Albumin 3.5 2.7 L (3.4-5.0) g/dL Assessment and Plan Assessment and Plan (1) Hand abrasion, infected: (2) Cellulitis of hand: (3) Left arm cellulitis: (4) Sepsis: Plan Sepsis present on admission, improving. White count is down and lactic acid is back to normal Right dorsal hand cellulitis. Erythema is traveling up to the forearm and the proximal arm. Palpable radial pulse Patient had received IV fluid infusion according to sepsis protocol I suspect that this could very well be MRSA and/or Pseudomonas and or anaerobic I started patient on vancomycin and added Primaxin. Wound and blood cultures were drawn. Pain management. Orthopedic consultation to evaluate and recommend. Dr. Cruz evaluated the patient and recommended continuation of intravenous antibiotic, elevate forearm, gentle range of motion and soaking her hand in a soapy warm water bid. He did not recommend any surgical intervention at this time. I asked pharmacy to renally adjust her medications. Vancomycin management per pharmacy. Thrombocytopenia Chronic. No old records available here at [facility] but I was able to get blood work completed in October 2024 which showed platelet count at 62. Could be related to liver disease and/or antirejection drugs. Could not exclude other possible etiologies. No evidence of active bleed. No justification for platelets transfusion. DAVID, CKD. No old record available in [facility]. I was able to get blood work completed in the outpatient setting in October 2024 which showed that her creatinine is 1.8 Patient came in with a creatinine at 2.13. Acute which could be related to sepsis. Kidney function started to improve approaching baseline. Metabolic acidosis secondary to above. In September 2024, her bicarbonate was 19. Not far from baseline currently. I started the patient on IV fluid infusion with sodium bicarb. She may need to be on sodium bicarb tablet to keep bicarbonate above 22. 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 I instructed patient to ask her family to bring her antirejection drug so we can verify, renally adjust by pharmacy and resume. DVT prophylaxis Avoid pharmacologic intervention due to thrombocytopenia Anemia which is probably chronic secondary to CKD. Her hemoglobin in September 2024 was 11.5. This could be caused by CKD as stated and/or iron deficiency given her age at 34 having active menstruation Requested to check iron level, ferritin, B12 and folate. May need to be started on iron supplementation. May need to be started on erythropoietin if hemoglobin drops below 8.5.
[2025-05-11 13:49] VITALS: BP 125/80; PULSE 92; TEMP 36.7; O2SAT 98
[2025-05-11] MEDS: OXYCODONE HCL 5 MG TABLET PO ×2 (14:00→20:16)
[2025-05-11] MEDS: IMIPENEM/CILASTATIN SODIUM 1,000 MG in 0.9 % SODIUM CHLORIDE 250 ML 250 MG IV (14:00)
[2025-05-11] MEDS: SODIUM BICARBONATE 50 MEQ in SODIUM CHLORIDE 0.45 % 1,000 ML 100 MEQ IV (15:04)
--- NOTE | 2025-05-11 15:10 | SWNOTE1 ---
SW reached out to pt's nurse, Codie, and pt did bring in home liver medications.
[2025-05-11 17:06] VITALS: BP 122/78; PULSE 90; TEMP 36.9; O2SAT 94
[2025-05-11] MEDS: PROPRANOLOL HCL 20 MG TABLET PO (17:54)
[2025-05-11 19:51] VITALS: BP 120/81; PULSE 98; TEMP 36.9; O2SAT 97
[2025-05-11 23:50] VITALS: BP 127/76; PULSE 92; TEMP 37.6; O2SAT 97
[2025-05-12] MEDS: IMIPENEM/CILASTATIN SODIUM 1,000 MG in 0.9 % SODIUM CHLORIDE 250 ML 250 MG IV ×2 (02:06→13:37)
[2025-05-12] MEDS: SODIUM BICARBONATE 50 MEQ in SODIUM CHLORIDE 0.45 % 1,000 ML 100 MEQ IV (02:10)
[2025-05-12] MEDS: VANCOMYCIN HCL 1,000 MG in 0.9 % SODIUM CHLORIDE 250 ML 250 MG IV (04:20)
[2025-05-12] MEDS: SUMATRIPTAN SUCCINATE 50 MG TABLET PO (04:32)
[2025-05-12 04:33] VITALS: BP 113/73; PULSE 87; TEMP 36.8; O2SAT 97
[2025-05-12] MEDS: OXYCODONE HCL 5 MG TABLET PO ×6 (05:47→21:59)
[2025-05-12 07:07] LABS: Vitamin B12 453 pg/mL (232-1245)
[2025-05-12 07:46] VITALS: BP 104/69; PULSE 86; TEMP 36.7; O2SAT 96
[2025-05-12] MEDS: TOPIRAMATE 100 MG TABLET 200 MG PO (09:31)
[2025-05-12] MEDS: LAMOTRIGINE 100 MG TABLET PO (09:31)
--- NOTE | 2025-05-12 11:26 | P.PN_ITS ---
Progress Note: Subjective Subjective Interval history: Following up on the patient. Slight improvement of pain intensity. Patient continues to rated her pain at least 8 on a scale of 10. Exam Narrative Exam Narrative: [pt is awake and alert. oriented to place, time and person. Definitely some resolution of the erythema and swelling involving the dorsal aspect of the hand as well as anterior forearm and proximal arm. Persistent tenderness and discomfort. Patient is slightly able to flex her fingers more than yesterday. She is able to flex her wrist without any difficulties. HEENT: [place] conjunctiva and NL buccal mucosa Neck: Supple, no tenderness Endocrine: No Thyromegaly. Vascular: No JVD or carotid bruit. Lymphatic: No cervical lymphadenopathy. Chest: CTA no DTP. Heart RRR, no extra sound or murmur. Abd: Soft, no tenderness, no rebound and no rigidity. Increase abd girth therefore clinically I could not exclude the possibility of intra abd mass or organomegaly. LE: No cyanosis or clubbing, no varices or edema. Neuro: A A O. Nl speech, comprehension and attention. Nl and symetrical motor and tone examination through out. []] Constitutional Vital Signs, click to edit/add: Last Vital Signs Temp 98.1 F 05/12/25 07:46 Pulse 86 05/12/25 07:46 Resp 18 05/12/25 08:00 BP 104/69 05/12/25 07:46 Pulse Ox 96 05/12/25 07:46 O2 Del Method Room Air 05/12/25 07:46 Progress Note: A&P Assessment and Plan (1) Hand abrasion, infected: (2) Cellulitis of hand: (3) Left arm cellulitis: (4) Sepsis: Plan Sepsis present on admission, improving. White count is down and lactic acid is back to normal Right dorsal hand cellulitis. Erythema is traveling up to the forearm and the proximal arm. Palpable radial pulse Patient had received IV fluid infusion according to sepsis protocol I suspect that this could very well be MRSA and/or Pseudomonas and or anaerobic I started patient on vancomycin and added Primaxin. Wound and blood cultures were drawn. Pain management. Orthopedic consultation to evaluate and recommend. Dr. Cruz evaluated the patient and recommended continuation of intravenous antibiotic, elevate forearm, gentle range of motion and soaking her hand in a soapy warm water bid. He did not recommend any surgical intervention at this time. I asked pharmacy to renally adjust her medications. Vancomycin management per pharmacy. Slight improvement of erythema and induration compared yesterday Continue current regimen. Continue to elevate right forearm and hand against gravity. Thrombocytopenia Chronic. No old records available here at [facility] but I was able to get blood work completed in October 2024 which showed platelet count at 62. Could be related to liver disease and/or antirejection drugs. Could not exclude other possible etiologies. No evidence of active bleed. No justification for platelets transfusion. DAVID, CKD. No old record available in [facility]. I was able to get blood work completed in the outpatient setting in October 2024 which showed that her creatinine is 1.8 Patient came in with a creatinine at 2.13. Acute which could be related to sepsis. Kidney function started to improve approaching baseline. Metabolic acidosis secondary to above. In September 2024, her bicarbonate was 19. Not far from baseline currently. I started the patient on IV fluid infusion with sodium bicarb. She may need to be on sodium bicarb tablet to keep bicarbonate above 22. 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 I instructed patient to ask her family to bring her antirejection drug so we can verify, renally adjust by pharmacy and resume. DVT prophylaxis Avoid pharmacologic intervention due to thrombocytopenia Anemia which is probably chronic secondary to CKD. Her hemoglobin in September 2024 was 11.5. This could be caused by CKD as stated and/or iron deficiency given her age at 34 having active menstruation Requested to check iron level, ferritin, B12 and folate. May need to be started on iron supplementation. May need to be started on erythropoietin if hemoglobin drops below 8.5.
[2025-05-12 12:00] VITALS: BP 120/71; PULSE 83; TEMP 36.7; O2SAT 98
[2025-05-12 12:18] LABS: Hematocrit 31.8 % (36.0-48.0); Hemoglobin 10.3 g/dL (12.0-16.0); Mean Corpuscular HGB Conc 32.4 g/dL (29.9-35.2); Mean Corpuscular Hemoglobin 29.7 pg (26.7-34.0); Mean Corpuscular Volume 91.6 fL (81.0-99.0); Platelet Count 31 10^3/uL (150-450); Red Blood Count 3.47 10^6/uL (4.20-5.40); White Blood Count 5.3 10^3/uL (4.0-11.0)
[2025-05-12 12:38] LABS: Alanine Aminotransferase 19 U/L (14-59); Albumin Globulin Ratio 0.7; Albumin Level 2.5 g/dL (3.4-5.0); Alkaline Phosphatase 70 U/L (46-116); Anion Gap 10.7; Aspartate Amino Transferase 18 U/L (15-37); Blood Urea Nitrogen 21.0 mg/dL (7.0-18.0); Calcium 8.8 mg/dL (8.5-10.1); Carbon Dioxide 19.9 mmol/L (21.0-32.0); Chloride 112 mmol/L (98-107); Estimated GFR (African America 52 (>=60 mL/min/1.73m^2); Estimated GFR (Non-African Ame 43 (>=60 mL/min/1.73m^2); Globulin 3.6 g/dL; Glucose 117 mg/dL (74-106); Potassium 3.6 mmol/L (3.5-5.1); Sodium 139 mmol/L (136-145); Total Protein 6.1 g/dL (6.4-8.2)
--- NOTE | 2025-05-12 12:43 | CM.NOTE ---
Rounds made with Dr. Lambert, discussed plan of care with pt. Pt will require several days of IV antibiotics. No discharge today.
[2025-05-12 12:59] LABS: Iron 9.0 ug/dL (50.0-170.0); Percent Iron Saturation 4.7 %; Total Iron Binding Capacity 190.0 ug/dL (250.0-450.0)
[2025-05-12 13:15] LABS: Ferritin 93.0 ng/mL (8.0-252.0); Folate 8.60 ng/mL (8.60-58.90)
[2025-05-12] MEDS: POTASSIUM CHLORIDE 10 MEQ ER TABLET 30 MEQ PO (14:52)
[2025-05-12] MEDS: REMOVE PATCH 1 PATCH TOPICAL (14:54)
[2025-05-12 16:00] VITALS: BP 120/80; PULSE 87; TEMP 36.7; O2SAT 98
[2025-05-12 21:00] VITALS: PULSE 95; TEMP 37.2; O2SAT 98
[2025-05-12 21:56] VITALS: BP 129/80; PULSE 95; TEMP 37.2; O2SAT 98
[2025-05-13] VITALS (7 sets, daily range): BP systolic 92–131; BP diastolic 61–85; PULSE 83–95; TEMP 36.4–37.1; O2SAT 96–99
[2025-05-13] MEDS: HYDROMORPHONE HCL 0.5 MG/0.5 ML SYRINGE IVP ×5 (00:30→23:33)
[2025-05-13] MEDS: IMIPENEM/CILASTATIN SODIUM 1,000 MG in 0.9 % SODIUM CHLORIDE 250 ML 250 MG IV (03:31)
[2025-05-13] MEDS: OXYCODONE HCL 5 MG TABLET PO ×3 (03:32→20:14)
[2025-05-13] MEDS: VANCOMYCIN HCL 1,000 MG in 0.9 % SODIUM CHLORIDE 250 ML 125 MG IV (04:54)
[2025-05-13 06:38] LABS: Hematocrit 32.9 % (36.0-48.0); Hemoglobin 10.8 g/dL (12.0-16.0); Mean Corpuscular HGB Conc 32.8 g/dL (29.9-35.2); Mean Corpuscular Hemoglobin 30.0 pg (26.7-34.0); Mean Corpuscular Volume 91.4 fL (81.0-99.0); Platelet Count 41 10^3/uL (150-450); Red Blood Count 3.60 10^6/uL (4.20-5.40); White Blood Count 3.3 10^3/uL (4.0-11.0)
[2025-05-13 06:53] LABS: Anion Gap 14.1; Blood Urea Nitrogen 21.0 mg/dL (7.0-18.0); Calcium 8.9 mg/dL (8.5-10.1); Carbon Dioxide 19.7 mmol/L (21.0-32.0); Chloride 109 mmol/L (98-107); Estimated GFR (African America 48 (>=60 mL/min/1.73m^2); Estimated GFR (Non-African Ame 40 (>=60 mL/min/1.73m^2); Glucose 102 mg/dL (74-106); Potassium 3.8 mmol/L (3.5-5.1); Sodium 139 mmol/L (136-145)
[2025-05-13] MEDS: DIPHENHYDRAMINE HCL 25 MG CAPSULE PO ×3 (07:31→21:33)
[2025-05-13] MEDS: LAMOTRIGINE 100 MG TABLET PO (08:51)
[2025-05-13] MEDS: TOPIRAMATE 100 MG TABLET 200 MG PO (08:51)
--- NOTE | 2025-05-13 09:31 | PM.PN ---
Progress Note: Subjective Subjective Interval history: Patient continues to experience very slow and gradual improvement of pain, swelling and redness involving the right hand. Patient developed itchy rash on her trunk, neck and upper and lower extremities. Exam Narrative Exam Narrative: [pt is awake and alert. oriented to place, time and person. Ongoing subtle and a gradual resolution of the erythema and swelling involving the dorsal aspect of the hand as well as anterior forearm and proximal arm. Persistent tenderness and discomfort. Patient is slightly able to flex her fingers more than yesterday. She is able to flex her wrist without any difficulties. Patient had developed scattered macular rash on her lower neck, upper chest, upper and lower extremities. HEENT: [place] conjunctiva and NL buccal mucosa Neck: Supple, no tenderness Endocrine: No Thyromegaly. Vascular: No JVD or carotid bruit. Lymphatic: No cervical lymphadenopathy. Chest: CTA no DTP. Heart RRR, no extra sound or murmur. Abd: Soft, no tenderness, no rebound and no rigidity. Increase abd girth therefore clinically I could not exclude the possibility of intra abd mass or organomegaly. LE: No cyanosis or clubbing, no varices or edema. Neuro: A A O. Nl speech, comprehension and attention. Nl and symetrical motor and tone examination through out. []] Constitutional Vital Signs, click to edit/add: Last Vital Signs Temp 98.0 F 05/13/25 07:34 Pulse 86 05/13/25 07:34 Resp 16 05/13/25 07:34 BP 111/71 05/13/25 07:34 Pulse Ox 98 05/13/25 07:34 O2 Del Method Room Air 05/13/25 07:34 Progress Note: Objective Labs Labs: Short CBC 05/12/25 05/13/25 Range/Units 12:07 06:02 WBC 5.3 3.3 L (4.0-11.0) 10^3/uL Hgb 10.3 L 10.8 L (12.0-16.0) g/dL Hct 31.8 L 32.9 L (36.0-48.0) % Plt Count 31 L 41 L (150-450) 10^3/uL BMP 05/12/25 05/13/25 12:07 06:02 Sodium 139 139 Potassium 3.6 3.8 Chloride 112 H 109 H Carbon Dioxide 19.9 L 19.7 L BUN 21.0 H 21.0 H Creatinine 1.42 H 1.50 H Glucose 117 H 102 Calcium 8.8 8.9 Liver Function 05/12/25 Range/Units 12:07 Total Bilirubin 0.6 (0.2-1.0) mg/dL AST 18 (15-37) U/L ALT 19 (14-59) U/L Alkaline Phosphatase 70 (46-116) U/L Albumin 2.5 L (3.4-5.0) g/dL Progress Note: A&P Assessment and Plan (1) Hand abrasion, infected: (2) Cellulitis of hand: (3) Left arm cellulitis: (4) Sepsis: Plan Sepsis present on admission, improving. White count is down and lactic acid is back to normal Right dorsal hand cellulitis. Erythema is traveling up to the forearm and the proximal arm. Palpable radial pulse Subtle and gradual improvement of the cellulitis involving her hand, forearm and the proximal arm Patient had developed rash which I suspect allergic dermatitis. Not sure if it is from vancomycin or Primaxin. I changed antibiotic to Levaquin and Zyvox. Hopefully this will cover MRSA, other gram-positive organism as well as negative including Pseudomonas. Low suspicious for anaerobic infection Monitor CRP. Allergic dermatitis likely caused by vancomycin and/or Primaxin I changed her antibiotic as listed above. Thrombocytopenia Chronic. No old records available here at [facility] but I was able to get blood work completed in October 2024 which showed platelet count at 62. Could be related to liver disease and/or antirejection drugs. Could not exclude other possible etiologies. No evidence of active bleed. No justification for platelets transfusion. DAVID, CKD. No old record available in [facility]. I was able to get blood work completed in the outpatient setting in October 2024 which showed that her creatinine is 1.8 Patient came in with a creatinine at 2.13. Acute which could be related to sepsis. Kidney function started to improve approaching baseline. Metabolic acidosis secondary to above. In September 2024, her bicarbonate was 19. Not far from baseline currently. I started the patient on IV fluid infusion with sodium bicarb. I started the patient on sodium bicarb tablet. The goal is to keep bicarbonate above 22. 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 I instructed patient to ask her family to bring her antirejection drug so we can verify, renally adjust by pharmacy and resume. DVT prophylaxis Avoid pharmacologic intervention due to thrombocytopenia Compression sequential devices Anemia which is probably chronic secondary to CKD. Her hemoglobin in September 2024 was 11.5. This could be caused by CKD as stated and/or iron deficiency given her age at 34 having active menstruation Requested to check iron level, ferritin, B12 and folate. May need to be started on iron supplementation. May need to be started on erythropoietin if hemoglobin drops below 8.5.
[2025-05-13] MEDS: LINEZOLID 600 MG TABLET PO ×2 (11:06→20:14)
[2025-05-13] MEDS: SODIUM BICARBONATE 325 MG TABLET 650 MG PO ×2 (11:07→20:14)
[2025-05-13] MEDS: LEVOFLOXACIN 500 MG TABLET PO (11:08)
[2025-05-13] MEDS: REMOVE PATCH 1 PATCH TOPICAL (14:56)
[2025-05-13 15:58] LABS: Glucose Urine UA NEGATIVE (NEGATIVE)
[2025-05-13 16:17] LABS: Cast Seen? NONE SEEN #/LPF (NONE SEEN); Crystals Seen? None Seen #/HPF (None Seen); Urine Culture Indicated NO
[2025-05-14] MEDS: OXYCODONE HCL 5 MG TABLET PO ×4 (03:42→20:07)
[2025-05-14 03:43] VITALS: BP 105/66; PULSE 90; TEMP 36.6; O2SAT 99
[2025-05-14 07:31] VITALS: BP 105/66; PULSE 90; O2SAT 99
[2025-05-14] MEDS: HYDROMORPHONE HCL 0.5 MG/0.5 ML SYRINGE IVP ×2 (08:55→13:04)
[2025-05-14] MEDS: LEVOFLOXACIN 500 MG TABLET PO (08:56)
[2025-05-14] MEDS: SODIUM BICARBONATE 325 MG TABLET 650 MG PO ×3 (08:56→21:29)
[2025-05-14] MEDS: TOPIRAMATE 100 MG TABLET 200 MG PO (08:56)
[2025-05-14] MEDS: LINEZOLID 600 MG TABLET PO ×2 (08:56→20:08)
[2025-05-14] MEDS: LAMOTRIGINE 100 MG TABLET PO (08:56)
--- NOTE | 2025-05-14 09:25 | MR_ITS ---
The [address] [address] Patient Name: YANI HUERTA MRN: [id number] date: 1990 Sex: F Assigned Patient Location: [place] Current Patient Location: [place] Accession/Order Number: [id number] Exam Date: 05/14/2025 10:48 Report Date: 05/15/2025 12:39 At the request of: JENN LARSON MD Procedure: MR hand RT wo con MR hand RT wo con 05/15/2025 12:06 PM SIGNS AND SYMPTOMS: ^Hand and index finger infection PROTOCOL: Multiplanar multisequence MR images of the right hand without IV contrast COMPARISON: 05/11/2025 FINDINGS: Alignment: Normal Extensor compartment: I: Intact. II: Intact. III: Intact. IV: Intact. V: Intact. : Intact. Flexor compartment: Carpal tunnel: Median nerve: Normal. Flexor retinaculum: Intact. Flexor tendons: Intact. Guyon canal: Normal. Articular: Thumb carpometacarpal joint: Normal. Scaphotrapeziotrapezoidal joint: Normal. Pisiform-triquetral joint: Normal. Bones (other than subarticular marrow): Normal. Muscles: Normal. Vessels: Normal. Soft tissues: There is edema predominantly confined to the subcutaneous soft tissues of the second digit dorsally without underlying abscess or bony involvement suspicious for cellulitis. MR/MR hand RT wo con IMPRESSION: There is edema predominantly confined to the subcutaneous soft tissues of the second digit dorsally without underlying abscess or bony involvement suspicious for cellulitis. No marrow edema to suggest osteomyelitis. Impression dictated by: Cruzito Gill M.D. 05/15/2025 12:39 PM Dictation Location: [place] [address] Electronically authenticated by: [id number] Y Date: 05/15/2025 12:39
--- NOTE | 2025-05-14 09:30 | P.PN_ITS ---
Progress Note: Subjective Subjective Interval history: Patient continues to experience very slow and gradual improvement of pain, swelling and redness involving the right hand. Patient developed itchy rash on her trunk, neck and upper and lower extremities. Exam Narrative Exam Narrative: [pt is awake and alert. oriented to place, time and person. Ongoing subtle and a gradual resolution of the erythema and swelling involving the dorsal aspect of the hand as well as anterior forearm and proximal arm. Persistent tenderness and discomfort. The index finger is more swollen than the previously noted. Patient had developed scattered macular rash on her lower neck, upper chest, upper and lower extremities. HEENT: [place] conjunctiva and NL buccal mucosa Neck: Supple, no tenderness Endocrine: No Thyromegaly. Vascular: No JVD or carotid bruit. Lymphatic: No cervical lymphadenopathy. Chest: CTA no DTP. Heart RRR, no extra sound or murmur. Abd: Soft, no tenderness, no rebound and no rigidity. Increase abd girth therefore clinically I could not exclude the possibility of intra abd mass or organomegaly. LE: No cyanosis or clubbing, no varices or edema. Neuro: A A O. Nl speech, comprehension and attention. Nl and symetrical motor and tone examination through out. []] Constitutional Vital Signs, click to edit/add: Last Vital Signs Temp 97.9 F 05/14/25 03:43 Pulse 90 05/14/25 07:31 Resp 18 05/14/25 07:31 BP 105/66 05/14/25 07:31 Pulse Ox 99 05/14/25 07:31 O2 Del Method Room Air 05/14/25 07:31 Progress Note: Objective Labs Labs: Urine 05/13/25 Range/Units 15:50 Urine Color Lt. yellow (YELLOW) Urine Clarity Clear (CLEAR) Urine pH 6.5 (5.0-9.0) Ur Specific [place] 1.015 (1.005-1.025) Urine Protein 30 A (NEG/TRACE) mg/dL Urine Glucose (UA) Negative (NEGATIVE) mg/dL Progress Note: A&P Assessment and Plan (1) Hand abrasion, infected: (2) Cellulitis of hand: (3) Left arm cellulitis: (4) Sepsis: Plan Sepsis present on admission, improving. White count is down and lactic acid is back to normal Right dorsal hand cellulitis. Erythema is traveling up to the forearm and the proximal arm. Palpable radial pulse Subtle and gradual improvement of the cellulitis involving her hand, forearm and the proximal arm. Worsening swelling and above and is involving the right index finger Patient had developed rash which I suspect allergic dermatitis. Not sure if it is from vancomycin or Primaxin. I changed antibiotic to Zyvox. Hopefully this will cover MRSA and other gram- positive organism. Levaquin is to cover gram negative including Pseudomonas. Low suspicious for anaerobic infection Monitor CRP. Requested MRI of the hand to be done tomorrow. Patient was seen by orthopedic physician Dr. Cruz on Thursday who did not recommend incision and drainage or MRI at that time. I greatly appreciate Dr. Cruz's input We would ask Ortho to come back and take a look at her right index finger tomorrow after the MRI completion to see if there will be any indication for incision and drainage Allergic dermatitis likely caused by vancomycin and/or Primaxin I changed her antibiotic as listed above. Thrombocytopenia Chronic. No old records available here at [facility] but I was able to get blood work completed in October 2024 which showed platelet count at 62. Patient stated that she has had low platelets count for years. Could be related to liver disease and/or antirejection drugs. Could not exclude other possible etiologies. No evidence of active bleed. No justification for platelets transfusion. DAVID, CKD. [facility]. I was able to get blood work completed in the outpatient setting in October 2024 which showed that her creatinine is 1.8 Patient came in with a creatinine at 2.13. Acute which could be related to sepsis. Kidney function started to improve approaching baseline. Metabolic acidosis secondary to above. In September 2024, her bicarbonate was 19. Not far from baseline currently. I started the patient on IV fluid infusion with sodium bicarb. I started the patient on sodium bicarb tablet. The goal is to keep bicarbonate above 22. 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 I instructed patient to ask her family to bring her antirejection drug so we can verify, renally adjust by pharmacy and resume. DVT prophylaxis Avoid pharmacologic intervention due to thrombocytopenia and increased risk of bleed. Compression sequential devices. Anemia which is probably chronic secondary to CKD. Her hemoglobin in September 2024 was 11.5. This could be caused by CKD as stated and/or iron deficiency given her age at 34 having active menstruation Requested to check iron level, ferritin, B12 and folate. May need to be started on iron supplementation. May need to be started on erythropoietin if hemoglobin drops below 8.5.
[2025-05-14] MEDS: DEXAMETHASONE SOD PHOS 4 MG/ML VIAL IV ×2 (10:16→20:08)
[2025-05-14] MEDS: DIPHENHYDRAMINE HCL 50 MG/ML VIAL 25 MG IVP (11:20)
[2025-05-14 12:00] VITALS: BP 123/86; PULSE 84; TEMP 36.8; O2SAT 98
[2025-05-14] MEDS: DIPHENHYDRAMINE HCL 25 MG CAPSULE PO (15:22)
[2025-05-14 16:00] VITALS: BP 126/74; PULSE 76; TEMP 36.8; O2SAT 96
[2025-05-14] MEDS: REMOVE PATCH 1 PATCH TOPICAL (16:22)
[2025-05-14 20:03] VITALS: BP 137/87; PULSE 101; TEMP 36.8; O2SAT 99
[2025-05-14] MEDS: FERROUS SULFATE 325 MG TABLET PO (20:07)
[2025-05-14 23:49] VITALS: BP 124/73; PULSE 105; TEMP 36.6; O2SAT 98
[2025-05-15] MEDS: DIPHENHYDRAMINE HCL 25 MG CAPSULE PO (00:18)
[2025-05-15] MEDS: HYDROMORPHONE HCL 0.5 MG/0.5 ML SYRINGE IVP ×2 (00:18→06:29)
[2025-05-15 04:00] VITALS: BP 112/70; PULSE 99; TEMP 36.8; O2SAT 96
[2025-05-15 05:25] LABS: Hematocrit 27.7 % (36.0-48.0); Hemoglobin 9.1 g/dL (12.0-16.0); Mean Corpuscular HGB Conc 32.9 g/dL (29.9-35.2); Mean Corpuscular Hemoglobin 29.8 pg (26.7-34.0); Mean Corpuscular Volume 90.8 fL (81.0-99.0); Platelet Count 51 10^3/uL (150-450); Red Blood Count 3.05 10^6/uL (4.20-5.40); White Blood Count 2.3 10^3/uL (4.0-11.0)
[2025-05-15 05:45] LABS: Anion Gap 11.6; Blood Urea Nitrogen 30.0 mg/dL (7.0-18.0); Calcium 9.1 mg/dL (8.5-10.1); Carbon Dioxide 23.4 mmol/L (21.0-32.0); Chloride 112 mmol/L (98-107); Estimated GFR (African America 39 (>=60 mL/min/1.73m^2); Estimated GFR (Non-African Ame 32 (>=60 mL/min/1.73m^2); Glucose 163 mg/dL (74-106); Potassium 4.0 mmol/L (3.5-5.1); Sodium 143 mmol/L (136-145)
[2025-05-15] MEDS: SODIUM BICARBONATE 325 MG TABLET 650 MG PO (06:26)
[2025-05-15 07:47] VITALS: BP 100/62; PULSE 90; TEMP 36.6; O2SAT 96
--- NOTE | 2025-05-15 08:15 | CM.NOTE ---
Rounds made with Dr. Lambert, pt possible discharge to home after MRI and ortho consult. Pt will need to f/u with PCP and Ortho if necessary after consult. Pt will discharge on oral antibiotics. No other discharge needs identified.
[2025-05-15] MEDS: LAMOTRIGINE 100 MG TABLET PO (08:17)
[2025-05-15] MEDS: LINEZOLID 600 MG TABLET PO (08:17)
[2025-05-15] MEDS: FERROUS SULFATE 325 MG TABLET PO (08:17)
[2025-05-15] MEDS: LEVOFLOXACIN 500 MG TABLET PO (08:17)
[2025-05-15] MEDS: TOPIRAMATE 100 MG TABLET 200 MG PO (08:17)
[2025-05-15] MEDS: OXYCODONE HCL 5 MG TABLET PO (09:21)
--- NOTE | 2025-05-15 09:50 | PM.DS1 ---
DS: Providers Provider Date of admission: 05/11/25 09:11 Primary care physician: EVY LAYTON Consults: 05/11/25 13:22 Consult to Pharmacy Routine Consulting Provider: Reason for consultation: Please renal dose antibiotic and antirejection meds 05/14/25 09:25 Consult to Orthopedics Routine Consulting Provider: Everett Mittal Reason for consultation: Hand infection DS: Diagnosis Discharge Diagnosis (1) Hand abrasion, infected: (2) Cellulitis of hand: (3) Left arm cellulitis: (4) Sepsis: Plan As listed above, below and others that are not listed DS: Summary Hospital Course Hospital Course: Mrs. Jaimes is a 34-year-old female who came in with pain, swelling and redness involving the right hand expanding to the forearm and proximal arm. Sepsis present on admission, resolved White count is down and lactic acid is back to normal CRP is trending down from 15 down to 5. Patient is afebrile Blood culture is negative Patient will be discharged home on oral antibiotic. Right dorsal hand cellulitis. Erythema is traveling up to the forearm and the proximal arm. Palpable radial pulse Noticeable improvement of the degree of erythema, induration and tenderness involving the right hand. Resolution of the erythema involving the forearm. No induration. Some resolution of erythema, induration and tenderness involving the index finger Wound cultures positive for Streptococcus. Patient had been on a combination of Levaquin and Zyvox. Prior to that the patient was on vancomycin and meropenem. MRI of the hand to exclude any abscess formation or osteomyelitis. Patient was seen on Thursday by orthopedic physician Dr. Cruz who did not recommend incision and drainage done. Patient wants to go home citing significant improvement of her symptoms and lack of desire to stay in the hospital any longer. Patient is allergic to penicillin, sulfa, clindamycin and cephalosporin therefore she will be discharged on oral Levaquin. Patient is to follow-up with their PCP and instructed to return back to the emergency room if there is any worsening redness, pain and swelling. Allergic dermatitis likely caused by vancomycin and/or Primaxin I changed her antibiotic as listed above. Thrombocytopenia, acute on chronic. Acute component had resolved. Chronic. No old records available here at [facility] but I was able to get blood work completed in October 2024 which showed platelet count at 62. Patient stated that she has had low platelets count for years. Could be related to liver disease and/or antirejection drugs. Could not exclude other possible etiologies. No evidence of active bleed. No justification for platelets transfusion. DAVID, CKD. No old record available in [facility]. I was able to get blood work completed in the outpatient setting in October 2024 which showed that her creatinine is 1.8 Patient came in with a creatinine at 2.13. Acute which could be related to sepsis. Kidney function started to improve approaching baseline. DAVID had resolved. Current CKD is at baseline. Patient is to follow-up with PCP. Recommendation for patient to follow-up with nephrology as well. We will arrange for her to follow-up with the [facility] nephrology team. Metabolic acidosis secondary to above. In September 2024, her bicarbonate was 19. Not far from baseline currently. I started the patient on IV fluid infusion with sodium bicarb. This was discontinued. I started the patient on sodium bicarb tablet. The goal is to keep bicarbonate above 22. Her bicarb today is 23 decrease sodium bicarb to Twice a day. 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 I instructed patient to ask her family to bring her antirejection drug so we can verify, renally adjust by pharmacy and resume. DVT prophylaxis Avoid pharmacologic intervention due to thrombocytopenia and increased risk of bleed. Compression sequential devices. Anemia which is probably chronic secondary to CKD. Her hemoglobin in September 2024 was 11.5. This could be caused by CKD as stated and/or iron deficiency given her age at 34 having active menstruation Requested to check iron level, ferritin, B12 and folate. Consistent with anemia of chronic disease Started on iron supplementation. Folic acid is on the low side. Start patient on folic acid supplementation. May need to be started on erythropoietin if hemoglobin drops below 8.5. Patient has multiple complex medical issues as listed above and others that are not listed. All appear to be stable. Patient is feeling much better. Patient is requesting to be discharged home. She is not interested in staying any longer. She is on oral antibiotic already. At this time, I do not have any clear or strong clinical justification to extend inpatient hospitalization against her will and desire to be discharged home. Patient however will require close and frequent monitoring as well as additional work-up, investigation and therapeutic intervention that could take place from this point on post discharge. That is to prevent relapse, decompensation, rehospitalization and other medical implications. I instructed patient to ask her primary care doctor to obtain [facility] record entirely to address abnormalities seen on labs and imaging that I have and have not addressed during this hospitalization, follow-up on pending blood work, imaging and pathology is if available and to follow-up on needed medical care in the outpatient setting. Time Spent with Patient Time attestation: Total time spent providing and/or coordinating discharge services: Exam Constitutional Vital Signs, click to edit/add: Last Vital Signs Temp 97.9 F 05/15/25 07:47 Pulse 90 05/15/25 07:47 Resp 18 05/15/25 07:47 BP 100/62 05/15/25 07:47 Pulse Ox 96 05/15/25 07:47 O2 Del Method Room Air 05/15/25 07:47 DS: Data Data Completed and Pending Labs on day of discharge: Labs from last 24 hours 05/15/25 04:59 WBC 2.3 L RBC 3.05 L Hgb 9.1 L Hct 27.7 L MCV 90.8 MCH 29.8 MCHC 32.9 RDW 12.9 Plt Count 51 L MPV 12.6 Sodium 143 Potassium 4.0 Chloride 112 H Carbon Dioxide 23.4 Anion Gap 11.6 BUN 30.0 H Creatinine 1.83 H Est GFR ( Amer) 39 L Est GFR (Non-Af Amer) 32 L BUN/Creatinine Ratio 16.4 Glucose 163 H Calcium 9.1 C-Reactive Protein 5.18 H Preliminary micro results at discharge 05/11/25 00:41 Blood Culture Result 2 - Preliminary Blood - Left Forearm NO GROWTH AT 36-48 HOURS. FINAL TO FOLLOW. 05/11/25 00:10 Blood Culture Result 1 - Preliminary Blood - Left Forearm NO GROWTH AT 36-48 HOURS. FINAL TO FOLLOW. Discharge Plan Discharge Disposition: Home, Self-Care Condition: Good Discharge Medications: New ferrous sulfate 325 mg (65 mg iron) Tablet 325 mg PO BID Qty: 60 1RF levofloxacin 250 mg tablet 250 mg PO QD Qty: 10 0RF oxycodone 5 mg Tablet 5 mg PO Q6H PRN (Reason: pain (scale score 7-10)) Qty: 20 0RF folic acid 1 mg tablet 1 mg PO DAILY Qty: 30 1RF sodium bicarbonate 650 mg tablet 650 mg PO BID Qty: 60 0RF Continued dextroamphetamine-amphetamine 15 mg tablet 15 mg PO DAILY lamotrigine 100 mg tablet 100 mg PO DAILY sirolimus 1 mg tablet 2 mg PO .QD topiramate 200 mg tablet 200 mg PO DAILY ursodiol 300 mg capsule 300 mg PO DAILY sumatriptan succinate 100 mg tablet 100 mg PO Q2H PRN (Reason: migraine headache) norethindrone-e.estradiol-iron [Rohan Fe 07/11 (28)] 1 mg-20 mcg (21)/75 mg (7) tablet 1 tab PO DAILY buspirone 10 mg tablet 10 mg PO BID Discontinued propranolol 60 mg capsule,extended release 24 hr 60 mg PO Q24H PRN (Reason: migraines) Print Language: Amharic Activity Restrictions/Additional Instructions: I may not have addressed or treated all of your medical illnesses or the abnormal blood work or imaging studies during this hospitalization. Please ask your primary care provider to obtain [facility] records entirely to follow up on all of the abnormal physical, laboratory, and imaging findings that I have not addressed. Please return back to the emergency room or seek medical attention if your symptoms worsen or return. Discharging you from [facility] does not mean that your medical care ends here and now. You may still need additional monitoring, work up, investigation, and treatment plan to be handled from this point on by out patient providers including your primary care provider and specialists. For any medication question, please contact your retail pharmacist or your primary care provider. Thank you. Forms: Portal Instructions Referrals: Baron Cruz DO [Physician, Orthopedics]
[2025-05-15] MEDS: DEXAMETHASONE SOD PHOS 4 MG/ML VIAL 6 MG IV (10:17)
--- NOTE | 2025-05-15 14:11 | PC.NURSE ---
picc pulled per dc order. dressing applied after pressure held. tolerated well. discharge instructions given to pt, verbalized understanding. home medications returned to pt. ambulated to exit, discharged to private vehicle.
--- NOTE | 2025-05-16 14:15 | CM.DCFOLLOWU ---
1st attempt 05/16/25, no answer
--- NOTE | 2025-05-17 14:59 | CM.DCFOLLOWU ---
2nd attempt 05/17/25, no answer
== END 2025-05-15 14:12 | disposition home or self-care (01) | DRG 720 ==
LOC: ER 05-11 02:24 → MS 05-11 09:14
PROVIDERS: Admitting Provider Internal Medicine; Emergency Provider Emergency Medicine; PCP Family Medicine; Visit Provider Internal Medicine
DX: A40.9 Streptococcal sepsis, unspecified (principal); L03.113 Cellulitis of right upper limb; S60.511A Abrasion of right hand, initial encounter; D63.1 Anemia in chronic kidney disease; E87.20 Acidosis, unspecified; Z94.4 Liver transplant status; D69.6 Thrombocytopenia, unspecified; W26.8XXA Contact with other sharp object(s), not elsewhere classified, initial encounter; N17.9 Acute kidney failure, unspecified; N18.30 Chronic kidney disease, stage 3 unspecified; Z79.899 Other long term (current) drug therapy; F17.200 Nicotine dependence, unspecified, uncomplicated; L27.0 Generalized skin eruption due to drugs and medicaments taken internally; T36.8X5A Adverse effect of other systemic antibiotics, initial encounter; Z88.0 Allergy status to penicillin; Z88.1 Allergy status to other antibiotic agents
CPT/HCPCS: 36415; 36569; 36592; 73130; 73218; 80048; 80053; 81001; 82607; 82728; 82746; 83540; 83550; 83605; 84703; 85025; 85027; 86140; 87040; 87070; 87075; 87077; 96365; 96366; 96367; 96375; 99285; 99406; J0743; J1100; J1171; J1200; J1885; J2405; J3373